=== PATIENT | male | born 1950 | race Caucasian/White ===

== ENCOUNTER 2016-09-25 19:53 | Emergency (ER) | payer OTHER ==
[~2016-09-25] VITALS: Ht 167.6 cm; Wt 68.0 kg
[2016-09-25 20:00] VITALS: BP_SYST 155
[2016-09-25 20:45] VITALS: BP_SYST 151
== END 2016-09-25 20:45 ==
LOC: SED 19:53
DX: Z02.89 Encounter for other administrative examinations (principal)
CPT/HCPCS: 99283